=== PATIENT | female | born 1950 | race Two or more races ===

== ENCOUNTER 2024-12-03 10:47 | Outpatient (CLI) | payer OTHER | END 2024-12-03 11:05 | disposition home or self-care (01) | LOC: TOM 10:47 | PROVIDERS: ATTEND Specialist | DX: M51.06 Intervertebral disc disorders with myelopathy, lumbar region (principal); J45.998 Other asthma ==

== ENCOUNTER 2025-01-03 12:04 | Outpatient (CLI) | payer OTHER | END 2025-01-03 12:09 | disposition home or self-care (01) | LOC: SONOGRAMA 12:04 | PROVIDERS: ATTEND Specialist | DX: N20.0 Calculus of kidney (principal) ==